=== PATIENT | female | born 1960 | race Caucasian/White ===

== ENCOUNTER 2018-01-15 09:43 | Emergency (ER) | payer OTHER ==
[~2018-01-15] VITALS: Ht 152.4 cm; Wt 54.4 kg
[~2018-01-15 09:43] MED LIST: CEFADROXIL500 MG PO; INTESTINEX680 MG PO; ORPH100T PO
== END 2018-01-15 15:58 | disposition home or self-care (01) ==
LOC: ER 09:43
DX: J06.9 Acute upper respiratory infection, unspecified (principal)

== ENCOUNTER 2018-03-21 13:17 | Emergency (ER) | payer OTHER ==
[~2018-03-21] VITALS: Ht 152.4 cm; Wt 54.4 kg
== END 2018-03-21 15:19 | disposition home or self-care (01) ==
LOC: ER 13:17
DX: B34.9 Viral infection, unspecified (principal)

== ENCOUNTER 2021-03-16 11:40 | Emergency (ER) | payer OTHER ==
[~2021-03-16] VITALS: Ht 152.4 cm; Wt 59.0 kg
[2021-03-16] MEDS ORDERED: FEXMID7.5 MG (11:56)
[2021-03-16] MEDS ORDERED: ACID REDUCER20 M1 (11:56)
[2021-03-16] MEDS ORDERED: MECLIZINE HCL25 MG PO (14:42)
== END 2021-03-16 14:51 | disposition home or self-care (01) ==
LOC: ER 11:40
DX: R42 Dizziness and giddiness (principal)

== ENCOUNTER 2021-08-15 10:05 | Emergency (ER) | payer OTHER ==
[~2021-08-15] VITALS: Ht 149.9 cm; Wt 59.0 kg
[~2021-08-15 10:05] MED LIST changes: +ACID REDUCER20 M1; +FEXMID7.5 MG; +MECLIZINE HCL25 MG PO
[2021-08-15] MEDS ORDERED: CIPRO500 MG PO (12:38)
[2021-08-15] MEDS ORDERED: PYRIDIUM100 MG PO (12:45)
== END 2021-08-15 12:48 | disposition home or self-care (01) ==
LOC: ER 10:05
DX: R30.0 Dysuria (principal)

== ENCOUNTER 2021-11-10 10:57 | Emergency (ER) | payer OTHER ==
[~2021-11-10] VITALS: Ht 149.9 cm; Wt 62.6 kg
[~2021-11-10 10:57] MED LIST changes: +CIPRO500 MG PO; +PYRIDIUM100 MG PO
== END 2021-11-10 15:37 | disposition home or self-care (01) ==
LOC: ER 10:57
DX: R10.32 Left lower quadrant pain (principal); Z03.818 Encounter for observation for suspected exposure to other biological agents ruled out

== ENCOUNTER 2022-04-19 11:54 | Emergency (ER) | payer OTHER ==
[~2022-04-19] VITALS: Ht 152.4 cm; Wt 61.7 kg
[2022-04-19] MEDS ORDERED: PANTOPRAZOLE SO40 M2 PO (12:17)
[2022-04-19] MEDS ORDERED: METRONIDAZOLE500 MG PO (12:18)
[2022-04-19] MEDS ORDERED: CLARITHROMYCIN500 M1 PO (12:18)
== END 2022-04-19 17:53 | disposition home or self-care (01) ==
LOC: ER 11:54
DX: M25.511 Pain in right shoulder (principal); Z88.0 Allergy status to penicillin; Z88.6 Allergy status to analgesic agent

== ENCOUNTER 2022-05-31 11:35 | Emergency (ER) | payer OTHER ==
[~2022-05-31] VITALS: Ht 152.4 cm; Wt 59.0 kg
[~2022-05-31 11:35] MED LIST changes: +CLARITHROMYCIN500 M1 PO; +METRONIDAZOLE500 MG PO; +PANTOPRAZOLE SO40 M2 PO
[2022-05-31] MEDS ORDERED: DOLOGEN CAPLET1 EACH PO (18:03)
[2022-05-31] MEDS ORDERED: TUSNEL LIQUID178 ML PO (18:03)
== END 2022-05-31 18:22 | disposition home or self-care (01) ==
LOC: ER 11:35
DX: U07.1 COVID-19 (principal)

== ENCOUNTER 2022-10-07 08:21 | Outpatient (CLI) | payer OTHER ==
[~2022-10-07 08:21] MED LIST changes: +DOLOGEN CAPLET1 EACH PO; +TUSNEL LIQUID178 ML PO
== END 2022-10-07 08:30 | disposition home or self-care (01) ==
LOC: TOM 08:21
DX: K62.5 Hemorrhage of anus and rectum (principal); R19.4 Change in bowel habit; Z12.11 Encounter for screening for malignant neoplasm of colon

== ENCOUNTER 2023-01-03 10:10 | Emergency (ER) | payer OTHER ==
[~2023-01-03] VITALS: Ht 149.9 cm; Wt 57.2 kg
== END 2023-01-03 16:02 | disposition home or self-care (01) ==
LOC: ER 10:10
DX: R10.2 Pelvic and perineal pain (principal); R31.9 Hematuria, unspecified; Z88.0 Allergy status to penicillin; Z88.6 Allergy status to analgesic agent

== ENCOUNTER 2023-03-29 10:51 | Outpatient (CLI) | payer OTHER | END 2023-03-29 10:52 | disposition home or self-care (01) | LOC: EKG 10:51 | PROVIDERS: ATTEND Ophthalmology | DX: I11.9 Hypertensive heart disease without heart failure (principal); H25.011 Cortical age-related cataract, right eye; Z98.41 Cataract extraction status, right eye ==

== ENCOUNTER 2023-03-30 08:32 | Outpatient (CLI) | payer OTHER | END 2023-03-30 08:41 | disposition home or self-care (01) | LOC: LAB 08:32 | PROVIDERS: ATTEND Ophthalmology | DX: H25.013 Cortical age-related cataract, bilateral (principal); D68.8 Other specified coagulation defects ==